=== PATIENT | male | born 2000 | race Caucasian/White ===

== ENCOUNTER 2023-05-04 00:35 | Emergency (ER) | payer OTHER ==
[~2023-05-04] VITALS: Ht 175.3 cm; Wt 69.1 kg
[2023-05-04 00:36] VITALS: TEMP 99.4
[2023-05-04] MEDS ORDERED: TRANEXAMIC ACID 100 MG/ML 10ML VIAL ONE (02:20)
[2023-05-04 05:52] VITALS: BP 127/86; O2SAT 98
== END 2023-05-04 05:54 | disposition home or self-care (01) ==
LOC: M ED 00:35
DX: L76.22 Postprocedural hemorrhage of skin and subcutaneous tissue following other procedure (principal); Z98.818 Other dental procedure status